=== PATIENT | female | born 1980 | race Asian ===

== ENCOUNTER 2019-08-02 14:06 | Emergency (ER) | payer OTHER ==
[~2019-08-02] VITALS: Ht 157.5 cm; Wt 50.9 kg
[2019-08-02 14:13] VITALS: Ht 157.5 cm; Wt 50.9 kg
[2019-08-02 15:51] LABS: BASOPHIL % 0.9 % (0-2); PLATELET COUNT 230 x10^3mcL (130-400); RED CELL DISTRIBUTION WIDTH 12.9 % (11.5-14.5)
[2019-08-02 16:16] VITALS: BP 98/60
== END 2019-08-02 17:58 | disposition home or self-care (01) ==
LOC: ED 14:06
PROVIDERS: Emergency Medicine
DX: B27.90 Infectious mononucleosis, unspecified without complication (principal); Z88.0 Allergy status to penicillin
CPT/HCPCS: 36415; 86308